=== PATIENT | female | born 1970 | race Caucasian/White ===

== ENCOUNTER 2017-10-29 07:59 | Day surgery (SDC) | payer OTHER, BC ==
[2017-10-29] MEDS ORDERED: MIDAZOLAM 1 MG/ML 2 ML INJ ×2 (10:06)
[2017-10-29] MEDS ORDERED: FENTAnyl 50 MCG/ML VIAL (10:06)
== END 2017-10-29 10:59 | disposition home or self-care (01) ==
LOC: GIL 07:59
DX: D12.5 Benign neoplasm of sigmoid colon (principal); K64.8 Other hemorrhoids; I10 Essential (primary) hypertension; E11.9 Type 2 diabetes mellitus without complications
CPT/HCPCS: 45380; 84703; 88305